=== PATIENT | female | born 1965 | race Caucasian/White ===

== ENCOUNTER → 2019-02-22 11:30 | Outpatient (CLI) | payer OTHER, SELFPAY ==
--- NOTE | 2019-02-22 11:33 | DI.US.S_ITS ---
PROCEDURE: US PELVIC COMPLETE INDICATIONS: POSSIBLE RETAINED TAMPON; UNABLE TO FIND ON PELVIC EXAM TECHNIQUE: Real-time scanning was performed of the pelvic organs, with image documentation. Additional endovaginal scanning was necessary due to incomplete visualization of the adnexal and endometrial structures by transabdominal scanning. COMPARISON: None. FINDINGS: Transabdominal scanning: Limited scanning through the kidneys shows no hydronephrosis. No pathologic free abdominal or pelvic fluid. Endovaginal scanning: Uterus: Uterus is normal in size at 9.3 x 4.3 x 5.2 cm. The endometrium measures 5.5 mm in combined thickness. No endometrial mass or fluid is seen. No tampon is visualized within the endometrium or endocervical canal. Ovaries: Bilateral ovaries are not well seen on this study. No gross adnexal mass or fluid is noted. Left uterine vessels appears dilated. IMPRESSION: 1. No endometrial mass or fluid. No tampon is seen on this study. 2. Bilateral ovaries are not well visualized. No gross adnexal mass. Mildly prominent left uterine vessels, suggest clinical correlation for possible pelvic congestion syndrome. Dictated by: Frank Gan M.D. on 02/22/2019 at 13:22 Approved by: Frank Gan M.D. on 02/22/2019 at 13:24
== END ==
PROVIDERS: PCP Family Medicine; Visit Provider Physician Assistant
DX: T19.2XXA Foreign body in vulva and vagina, initial encounter (principal)
CPT/HCPCS: 76830; 76856

== ENCOUNTER → 2019-02-26 15:55 | Outpatient (CLI) | payer OTHER, SELFPAY ==
--- NOTE | 2019-02-26 15:57 | DI.MG.S_ITS ---
BILATERAL DIGITAL SCREENING MAMMOGRAM 3D/2D WITH CAD: 02/26/2019 CLINICAL: Routine screening. Family history of breast cancer. Comparison is made to exam [facility]. The tissue of both breasts is heterogeneously dense. This may lower the sensitivity of mammography. Current study was also evaluated with a Computer Aided Detection (CAD) system. No significant masses, calcifications, or other findings are seen in either breast. There has been no significant interval change. IMPRESSION: NEGATIVE There is no mammographic evidence of malignancy. A 1 year screening mammogram is recommended. This exam was interpreted at Station ID: [id number]. NOTE: For mammograms, a report in lay terms will be sent to the patient. Approximately 15% of breast malignancies will not be visualized mammographically. In the management of a palpable breast mass, a negative mammogram must not discourage biopsy of a clinically suspicious lesion. Electronically Signed By: Joe cohen/nikolay:02/26/2019 19:24:17 letter sent: Normal Exam ACR BI-RADS Category 1: Negative [id number]
== END ==
PROVIDERS: PCP Family Medicine; Visit Provider Obstetrics & Gynecology
DX: Z12.31 Encounter for screening mammogram for malignant neoplasm of breast (principal); Z80.3 Family history of malignant neoplasm of breast
CPT/HCPCS: 77063; 77067

== ENCOUNTER → 2019-05-02 12:31 | Outpatient (CLI) | payer OTHER, SELFPAY ==
--- NOTE | 2019-05-02 | DI.US.S_ITS ---
PROCEDURE: US ABDOMEN COMPLETE INDICATIONS: EPIGASTRIC PAIN TECHNIQUE: Real-time scanning was performed of the abdominal and retroperitoneal organs, with image documentation. COMPARISON: None. FINDINGS: Liver: Liver is normal in size and homogeneous in echotexture. Gallbladder: Large gallstone present the gallbladder wall is thickened measuring up to 6.8 mm. Biliary ducts: Intrahepatic bile ducts are non-dilated. Extrahepatic bile duct caliber measures 6.5 mm. Normal is 6-7 mm or less in diameter, or 10 mm or less post-cholecystectomy. Pancreas: Visualized portions of the pancreas are sonographically normal. Spleen: Spleen is normal in size and homogeneous in echotexture. Kidneys: Kidneys are normal in size and echotexture. Right kidney measures 10.6 cm long; left kidney measures 10.8 cm long. No hydronephrosis or nephrolithiasis. No solid masses. Aorta: Visualized aorta is normal in caliber at less than 3 cm. Iliacs: Proximal common iliac arteries are normal in caliber at less than 2.5 cm. IVC: Intrahepatic inferior vena cava is patent. Miscellaneous: No free abdominal fluid. IMPRESSION: 1. Single large gallstone with thickened gallbladder wall measuring up to 6.8 mm suggesting associated acute cholecystitis. Recommend clinical correlation. Angyok Ang given results at 1654 hrs. 05/02/2019. Dictated by: Oziel HALL Interpreted: Ganesh Blount MD on 05/02/2019 at 16:40 Approved by: Ganesh Blount M.D. on 05/02/2019 at 17:30
== END ==
PROVIDERS: Family Provider Nurse Practitioner Family; PCP Family Medicine; Visit Provider Family Medicine
DX: R10.13 Epigastric pain (principal); K80.20 Calculus of gallbladder without cholecystitis without obstruction
CPT/HCPCS: 76700

== ENCOUNTER 2019-05-10 09:46 | Day surgery (SDC) | payer OTHER, SELFPAY ==
[2019-05-08 11:46] VITALS: BMI 30.2
[2019-05-10] VITALS (10 sets, daily range): BP systolic 98–116; BP diastolic 52–75; PULSE 54–73; RESP 10–16; TEMP 36.1–37.6; O2SAT 92–99; BMI 30.9
--- NOTE | 2019-05-10 | PATH_ITS ---
[facility] Accession Number: [id number] . 01 Material submitted: . gallbladder - GALLBLADDER . 02 Diagnosis: Gallbladder, Cholecystectomy: Cholelithiasis with mild chronic cholecystitis. No evidence of neoplasm. MRV 05/13/2019 1317 Local . 02 Electronically signed: . Lincoln Roger MD, PhD, Pathologist NPI- [id number] . 01 Gross description: . Received in formalin, labeled gallbladder, is an intact gallbladder (length-9.5 cm, diameter-2.5 cm) with pisano-green smooth shiny serosa and a patent cystic duct. No lymph nodes are identified. The lumen contains dark green viscous bile and one esteves-yellow gritty hard calculus (2.2 x 1.5 x 1.3 cm) with a clear colorless crystalline cut surface. The mucosa is dark green smooth and flat. The wall is up to 0.1 cm thick. No nodules, masses or lesions are identified. Section code: (A1) cystic duct resection margin and two serial sections from the body; (A2) two longitudinal sections from the fundus. ([id number]) /MRV 05/11/20192034 Local . 02 Pathologist provided ICD-10: K80.60 . 02 CPT . 894601 Performed at: 01 [facility] [address], [place], [place] [id number] MD Zeferino Gastelum MD Phone: [phone] Performed at: 02 [facility] [address] [place], [place] [id number] MD Lizzy Estrada MD Phone: [phone]
[2019-05-10 10:23] LABS: Add Manual Diff / Slide Review NO; Basophils Absolute Auto 100 /uL (0-100); Basophils Percent Auto 1.5 % (0-2); Eosinophils Absolute Auto 100 /uL (0-450); Eosinophils Percent Auto 2.2 % (2-4); Hematocrit 43.8 % (36-46); Hemoglobin 14.7 g/dL (12.0-16.0); Lymphocytes Absolute Auto 2000 /uL (1100-4500); Lymphocytes Percent Auto 35.4 % (25-40); Mean Corpuscular HGB Conc 33.7 % (30-36); Mean Corpuscular Hemoglobin 30.1 PG (26-34); Mean Corpuscular Volume 89.6 fL (80-100); Monocytes Absolute Auto 400 /uL (0-900); Monocytes Percent Auto 7.2 % (3-14); Neutrophils Absolute Auto 3100 /uL (1500-7000); Neutrophils Percent Auto 53.7 % (50-75); Platelet Count 308 X10^3/uL (150-400); Red Blood Cell Count 4.89 X10^6/uL (4.0-5.2); Red Cell Distribution Width 14.4 % (11.6-14.8); White Blood Cell Count 5.8 X10^3/uL (4.5-11.0)
[2019-05-10] MEDS: LACTATED RINGERS 1,000 ML 42 ML IV ×2 (10:34→13:00)
[2019-05-10 10:58] LABS: Alanine Aminotransferase 13 IU/L (9-52); Albumin 4.4 g/dL (3.5-5.0); Albumin Globulin Ratio 1.4 (1.0-2.8); Alkaline Phosphatase 41 U/L (38-126); Aspartate Aminotransferase 25 IU/L (14-36); BUN Creatinine Ratio 22.5 (6-22); Bilirubin Total 0.8 mg/dL (0.2-1.3); Blood Urea Nitrogen 18 mg/dL (7-17); Calcium 9.2 mg/dL (8.4-10.2); Carbon Dioxide 24 mmol/L (22-32); Chloride 105 mmol/L (98-107); Estimated Glomerular Filt Rate > 60.0 mL/min (>60); Globulin 3.1 g/dL (1.7-4.1); Glucose 87 mg/dL (70-100); HEMOLYSIS 50 (0-50); Potassium 4.3 mmol/L (3.4-5.1); Sodium 139 mmol/L (137-145); Total Protein 7.5 g/dL (6.3-8.2)
--- NOTE | 2019-05-10 10:59 | SUR.PREOP ---
Dr. Gusman notified patient c/o lt chest tightness and anxiety. Pt c/o pain at the IV site, site wnl. Warm blanket applied with some improvement in discomfort.
--- NOTE | 2019-05-10 11:07 | PM.PREOP ---
Pre-operative Note Interval Note History & Physical reviewed/Exam performed by Physician: Yes Changes to H&P: Yes H&P completed within 30 days and has changed as indicated here:: CBC and CMP are normal
[2019-05-10] MEDS: AMPICILLIN/SULBACTAM 3 GM 3 GM in SODIUM CHLORIDE 0.9% 100 ML IV (11:10)
--- NOTE | 2019-05-10 11:42 | SUR.OPER ---
Supine on padded OR bed, head on pillow, safety belt at thigh, ARMS ON ARMBOARDS Legs uncrossed. Padded footboard in place. Tape over blanket to secure lower legs.
--- NOTE | 2019-05-10 11:52 | SUR.OPER ---
Supine on padded OR bed, head on pillow, arms secured on padded arm boards at <90 degrees abduction, legs uncrossed, safety belt at thigh, tape over blanket over lower legs.
[2019-05-10] MEDS: BUPIVACAINE 0.25% W/ EPI 30 ML VIAL INJ (13:31)
[2019-05-10] MEDS: ONDANSETRON 4 MG/2 ML INJ IV (14:20)
--- NOTE | 2019-05-10 14:28 | PM.OP.1 ---
Operative Date/Time/Diagnoses Date of procedure: 05/10/19 Time of procedure: 14:28 Pre-op diagnosis: Symptomatic cholelithiasis, chronic cholecystitis Post-op diagnosis: same Procedure & Clinicians Procedure: Laparoscopic cholecystectomy Same procedure as scheduled: Yes Indications: Acute on chronic cholecystitis, symptomatic cholelithiasis Surgeon: Danielle Siegel Click Yes if Unassisted: Yes Anesthesia Type: General Operative Notes Findings: Thickened gall bladder with dense scar tissue in gall bladder hilum Specimen(s): other (gall bladder) Estimated Blood Loss (mL): 50 Procedure in detail: The patient was brought into the operating room and placed supine on the OR table. Sequential compression devices were placed on both legs and turned on. Appropriate perioperative antibiotics were given prior to the start of surgery. General anesthesia was induced the patient was intubated. The abdomen was prepped and draped in sterile fashion. Surgical time-out was conducted. Local anesthetic was injected under the skin just superior to the umbilicus and a 5 mm vertical incision was made at this site. The umbilical stalk was grasped with a Irving and elevated. A Veress needle was passed through the fascia into proper position. The position was tested with a saline drop test which was appropriate for intra-abdominal Veress needle placement. The abdomen was then insufflated in the usual fashion. Once insufflated to 15 mm Hg the Veress needle was removed and a 5 mm optical trocar was placed under direct vision using a 5 mm 30 degree scope. Once the camera was inside the abdomen I took a look around. There was no injury from port placement. Two additional ports were placed in a similar fashion in the right upper quadrant and a 10 mm port was placed in the epigastrium. Through the 2 lateral ports the gallbladder was grasped and elevated and the infundibulum was retracted laterally to the patient's right. This exposed the gallbladder hilum and allowed for dissection of the cystic duct and cystic artery. There is quite a bit of dense scar tissue throughout the gallbladder hilum. This required tedious careful dissection to avoid injury to the bile ducts. Once the cystic duct and artery were completely dissected out and I was able to see liver behind and between both structures without any other structures in the way, giving us the critical view of safety. At this point I doubly clipped both structures on the patient's side and put a single clip on the gallbladder side of both the cystic duct and artery. Both structures were then divided with laparoscopic [place]. Following this the gallbladder was gradually dissected free from the liver. There was quite a bit of hypervascularity of the scar tissue between the gallbladder and the liver. Several small vessels had to be controlled with cautery. Once the gallbladder was entirely freed, it was placed inside an Endo-Catch bag and removed through the epigastric port site. I did have to enlarge the epigastric site in order to get the gallbladder out. Once it was out and passed off to the back table I then took another look inside the abdomen. I suctioned clean any remaining blood or fluid on the lateral side of the liver and in the subhepatic space. I also suctioned some serosanguineous fluid from the pelvis. There was no active bleeding or leaking of bile from the gallbladder fossa or from the clipped stumps of the cystic duct and artery. At this point the insufflation was removed from the abdomen and the epigastric port site was closed with 0 Vicryl suture in the fascia, 3 O Vicryl in the subcutaneous layers, and 4 Monocryl in the skin. The remaining port sites were closed with 4 Monocryl in the skin. Each port site was sealed with Dermabond. Local anesthetic was given at each of the port sites and in the fascia. This concluded the procedure. At this point the needle sponge and instrument counts were correct. The gallbladder was passed off the table for pathology. Patient was awakened from anesthesia and extubated. She was transferred to the postanesthesia care unit in stable condition. Complications: none Post-operative Condition: stable Disposition: PACU
[2019-05-10] MEDS: OXYCODONE/ACETAMINOPHEN 5/325 TABLET 1 TAB PO (14:54)
--- NOTE | 2019-05-10 15:34 | SUR.PHASEII ---
encouraged cough and deep breathing exercises, incentive spirometer use encouraged, breath sounds are clear but decreased in bases, left greater than right. pt tolerating sips of water, abdomen is soft and non distended, dressings dry and intact. pt denies pain but states she is sore, denies need for additional pain medicine at this time.
[2019-05-10] MEDS: METOCLOPRAMIDE 10 MG/2 ML INJ IV (16:54)
--- NOTE | 2019-05-10 16:56 | SUR.PHASEII ---
Pt reported abd pain 2-3/10. Dizziness improved. Pt sat up in anticipation of discharge, c/o feeling hot and nauseated. Medicated with Reglan.
--- NOTE | 2019-05-10 17:41 | SUR.PHASEII ---
1720 Pt reported nausea resolved. Sat on the edge of the bed independently. VS stable. Pt reported dizziness with movement. Pt declined to change into her own clothing, discharged in hospital gown. Pt transferred to the wheelchair independently/SBA. Reported mild nausea. Discussed option to stay overnight multiple times during phase II. Pt requested to discharge. IV discontinued.
== END 2019-05-10 17:29 | disposition home or self-care (01) ==
PROVIDERS: PCP Family Medicine; Visit Provider Surgery
PROC: 0FT44ZZ Resection of Gallbladder, Percutaneous Endoscopic Approach (ICD-10-PCS; CPT 47562; principal; 2019-05-10 10:45)
DX: K80.10 Calculus of gallbladder with chronic cholecystitis without obstruction (principal)
CPT/HCPCS: 47562; 80053; 85025; J0295; J1100; J1170; J1885; J2250; J2405; J2704; J2765; J3010

== ENCOUNTER → 2020-07-10 11:48 | Outpatient (CLI) | payer OTHER, SELFPAY ==
--- NOTE | 2020-07-10 11:51 | DI.RAD.S_ITS ---
PROCEDURE: XR CHEST 2V INDICATIONS: chest pain TECHNIQUE: 2 views of the chest were acquired. COMPARISON: None. FINDINGS: Surgical changes and devices: None. Lungs and pleura: Lungs are clear. No pleural effusions or pneumothorax. Mediastinum: Mediastinal contours are normal. Heart size is normal. Bones and chest wall: No suspicious bony abnormalities. Soft tissues appear unremarkable. IMPRESSION: No acute disease. Dictated by: Ganesh Blount M.D. on 07/10/2020 at 13:43 Approved by: Ganesh Blount M.D. on 07/10/2020 at 13:45
== END ==
PROVIDERS: PCP Family Medicine; Referring Provider Family Medicine; Visit Provider Family Medicine
DX: R07.9 Chest pain, unspecified (principal)
CPT/HCPCS: 71046

== ENCOUNTER → 2020-10-14 11:30 | Outpatient (CLI) | payer OTHER, SELFPAY ==
[2020-10-14 13:17] LABS: COVID19 -Nasal RAPID Negative (Negative)
== END ==
PROVIDERS: PCP Family Medicine; Visit Provider Physician Assistant
DX: Z01.812 Encounter for preprocedural laboratory examination (principal); Z20.822 Contact with and (suspected) exposure to COVID-19
CPT/HCPCS: 87635

== ENCOUNTER 2020-10-16 14:14 | Day surgery (SDC) | payer OTHER, SELFPAY ==
--- NOTE | 2020-10-16 08:16 | PM.HP.1 ---
History of Present Illness History of Present Illness Date Patient Seen: 10/16/20 Chief complaint: SDC Narrative: 55 Years Old Female comes in today for consideration of a screening colonoscopy. There have been no lower GI symptoms suggesting disease such as change in bowel habits, bleeding, abdominal pain or anemia. There's been no family history of colon cancer or colon polyps. Overall health issues have been stable, including no major cardiac events for at least 6 weeks. Past Medical History: Epidermoid cyst of skin Acute calculous cholecystitis Perioral dermatitis ANXIETY DISORDER, GENERALIZED Palpitations Past Surgical History: Section x 3 Cholecystectomy Family History: Dad: prolapsing mitral valve. ablation for ? arrythmia Mom: no problems Brother 2 years younger healthy Social History: Marital Status: Children: Lori(03/09/05), Grisel (02/12/07), Tabatha (09/24/09) Occupation: Teacher Household Members: Lori Horan, Grisel, Tabatha Education: Masters Patient History Medical History (Updated 05/23/19 @ 13:49 by Danielle Siegel MD) Cholelithiasis and cholecystitis without obstruction Surgical History (Updated 05/23/19 @ 13:49 by Danielle Siegel MD) Hx of section Status post cholecystectomy Family & Social History Family History Father Stroke Hx of heart disorder Grandmother Diabetes mellitus Cancer Hx of heart disorder Social History: household members spouse Tobacco & Substance use: Smoking Status Never smoker alcohol intake current Meds Home Medications and Allergies Home Medications Medication Instructions Recorded Confirmed Type estradiol 1 vag ring VAGINAL [id number] #1 ea 09/02/20 09/02/20 Rx Allergies Allergy/AdvReac Type Severity Reaction Status Date / Time adhesive Allergy Unknown Blister Verified 09/02/20 15:02 Review of Systems Review of Systems ROS: Yes All systems reviewed with the patient and are negative except as otherwise documented Exam Narrative Exam Narrative: General: Alert and oriented, appearing stated age and in no acute distress. Head: Head normocephalic/atraumatic. Neck: Neck soft and supple, no lymphadenopathy. Lungs: Clear to auscultation bilaterally, no wheezes, rhonchi or rales. Heart: normal rate and regular rhythm, no murmurs, rubs, gallops, or clicks, Abdomen: abdomen soft and non-tender without masses, organomegaly, or abdominal wall hernias, bowel sounds positive. Skin: intact without suspicious lesions or rashes, Psych: alert and cooperative; normal mood and affect; normal attention span and concentration; cognition, remote and recent memory appear to be intact, Assessment & Plan Assessment & Plan narrative: 1. Screening for colon cancer Plan for colonoscopy. The nature and character of the procedure as well as anticipated results were discussed. The possibility of not completing the procedure was also discussed. Possible complications including aspiration pneumonia, bleeding, perforation and reaction to medications either for sedation or preparation and missed lesions were discussed. Questions were answered and proceeding to the colonoscopy was elected. Informed consent signed. I sincerely appreciate the referral allowing me to participate in this patient's care. Please contact me with any questions or concerns.
--- NOTE | 2020-10-16 08:17 | PM.OP.ENDO ---
Operative Date/Time/Diagnoses Date of procedure: 10/16/20 Procedure Notes SCOAP/Timeout: 3:03 p.m. Procedure in detail: ENDOSCOPIST: Julieta Florez MD Sedation RN: Ac Plasencia RN Sedation start time: 3:04 p.m. Sedation end time: 3:25 p.m. PROCEDURE: Colonoscopy INDICATIONS: 1. Screening for colon cancer MEDICATION: Levsin 0.125 mg sublingual, incremental doses of Versed and fentanyl until appropriate level sedation achieved. ASA CLASS: 2 CECAL WITHDRAWAL TIME: 10 minutes COMPLICATIONS: None. EXTENT OF PROCEDURE: Cecum. QUALITY OF PREP: Good with portions of liquid stool. PROCEDURE: Prior to insertion of the colonoscope, a digital rectal examination was accomplished with circumferential palpation of the distal rectal mucosa without significant findings being noted. The high-definition pediatric colonoscope was passed into the rectum in the usual fashion and advanced over to the cecum without difficulty. The ileocecal valve, appendiceal stoma, and medial wall all could be inspected and no abnormalities were seen. ASCENDING COLON: As the colonoscope was withdrawn, care was taken to expose and inspect the haustral folds and no abnormalities were seen. HEPATIC FLEXURE: Normal, no polyps, diverticula or other abnormalities. TRANSVERSE COLON: Normal, no polyps, diverticula or other abnormalities. DESCENDING COLON: Normal, no polyps, diverticula or other abnormalities. SIGMOID COLON: Normal, no polyps, diverticula or other abnormalities. RECTUM: Normal. J maneuver was produced. There was no significant perianal disease. The J maneuver was broken. The remainder of the rectum was inspected and there was no external hemorrhoid disease. The scope was withdrawn. IMPRESSION: 1. Normal colonoscopy PLAN: 1. Repeat colonoscopy in 10 years The possibility of a missed lesion including a malignancy has been discussed with the patient previously. Potential alarm symptoms have been discussed and should be reported immediately.
[2020-10-16 14:39] VITALS: BP 122/72; PULSE 59; RESP 14; TEMP 36.8; O2SAT 100
[2020-10-16 14:46] VITALS: BMI 29.0
[2020-10-16] MEDS: LACTATED RINGERS 1,000 ML 200 ML IV (14:46)
[2020-10-16] MEDS: HYOSCYAMINE 0.125 MG TABLET PO (14:56)
[2020-10-16] MEDS: fentaNYL 250 MCG/5 ML INJ IV (15:13)
[2020-10-16] MEDS: MIDAZOLAM 5 MG/5 ML VIAL IV (15:13)
[2020-10-16 15:30] VITALS: BP 113/57; PULSE 64; RESP 14; TEMP 36.5; O2SAT 95
[2020-10-16 15:35] VITALS: BP 103/59; PULSE 63; RESP 16; O2SAT 96
[2020-10-16 15:40] VITALS: BP 108/60; PULSE 64; RESP 16; TEMP 36.4; O2SAT 96
[2020-10-16 15:47] VITALS: BP 114/64; PULSE 58; RESP 16; O2SAT 97
== END 2020-10-16 16:09 | disposition home or self-care (01) ==
PROVIDERS: PCP Family Medicine; Referring Provider Student in an Organized Health Care Education/Training Program; Visit Provider Student in an Organized Health Care Education/Training Program
PROC: 0DJD8ZZ Inspection of Lower Intestinal Tract, Via Natural or Artificial Opening Endoscopic (ICD-10-PCS; CPT 45378; principal; 2020-10-16 15:15)
DX: Z12.11 Encounter for screening for malignant neoplasm of colon (principal); F41.9 Anxiety disorder, unspecified
CPT/HCPCS: 45378; J2250; J3010

== ENCOUNTER → 2021-03-30 10:57 | Outpatient (CLI) | payer OTHER, SELFPAY ==
--- NOTE | 2021-03-30 | DI.MG.S_ITS ---
BILATERAL DIGITAL SCREENING MAMMOGRAM 3D/2D WITH CAD: 03/30/2021 CLINICAL: Routine screening. Family history of breast cancer. Comparison is made to exams dated: 02/26/2019 mammogram and 07/17/2008 mammogram - [facility]. The tissue of both breasts is heterogeneously dense. This may lower the sensitivity of mammography. Current study was also evaluated with a Computer Aided Detection (CAD) system. No significant masses, calcifications, or other findings are seen in either breast. There has been no significant interval change. IMPRESSION: NEGATIVE There is no mammographic evidence of malignancy. A 1 year screening mammogram is recommended. This exam was interpreted at Station ID: [id number]. NOTE: For mammograms, a report in lay terms will be sent to the patient. Approximately 15% of breast malignancies will not be visualized mammographically. In the management of a palpable breast mass, a negative mammogram must not discourage biopsy of a clinically suspicious lesion. Electronically Signed By: Noah torres/nikolay:03/30/2021 11:26:24 copy to: Christiano Salvador letter sent: Normal Exam ACR BI-RADS Category 1: Negative [id number]
== END ==
PROVIDERS: PCP Family Medicine; Referring Provider Obstetrics & Gynecology; Visit Provider Obstetrics & Gynecology
DX: Z12.31 Encounter for screening mammogram for malignant neoplasm of breast (principal); Z80.3 Family history of malignant neoplasm of breast
CPT/HCPCS: 77063; 77067

== ENCOUNTER → 2022-02-09 10:08 | Outpatient (CLI) | payer OTHER, SELFPAY ==
[2022-02-09 10:46] LABS: Add Manual Diff / Slide Review NO; Basophils Absolute Auto 100 /uL (0-100); Eosinophils Absolute Auto 200 /uL (0-450); Eosinophils Percent Auto 3.5 % (2-4); Hemoglobin 14.1 g/dL (12.0-16.0); Lymphocytes Absolute Auto 2500 /uL (1100-4500); Lymphocytes Percent Auto 44.7 % (25-40); Mean Corpuscular HGB Conc 33.5 % (30-36); Mean Corpuscular Hemoglobin 29.5 PG (26-34); Monocytes Absolute Auto 400 /uL (0-900); Monocytes Percent Auto 6.8 % (3-14); Neutrophils Absolute Auto 2400 /uL (1500-7000); Platelet Count 278 X10^3/uL (150-400); Red Blood Cell Count 4.77 X10^6/uL (4.0-5.2); Red Cell Distribution Width 14.1 % (11.6-14.8); White Blood Cell Count 5.5 X10^3/uL (4.5-11.0)
[2022-02-09 11:43] LABS: TSH w/ Reflex to FT4 2.39 uIU/mL (0.47-4.68)
== END ==
PROVIDERS: PCP Family Medicine; Referring Provider Physician Assistant Medical; Visit Provider Physician Assistant Medical
DX: R53.82 Chronic fatigue, unspecified (principal); R63.5 Abnormal weight gain
CPT/HCPCS: 36415; 84443; 85025

== ENCOUNTER → 2022-06-01 15:48 | Outpatient (CLI) | payer OTHER, SELFPAY ==
--- NOTE | 2022-06-01 15:48 | DI.RAD.S_ITS ---
PROCEDURE: XR CHEST 2V INDICATIONS: Cough TECHNIQUE: 2 views of the chest were acquired. COMPARISON: [facility], CR, XR CHEST 2V, 07/10/2020, 12:05. FINDINGS: Surgical changes and devices: None. Lungs and pleura: Lungs are clear. No pleural effusions or pneumothorax. Mediastinum: Mediastinal contours are normal. Heart size is normal. Bones and chest wall: No suspicious bony abnormalities. Soft tissues appear unremarkable. IMPRESSION: No acute radiographic abnormality. Dictated by: Manny Ni M.D. on 06/01/2022 at 18:12 Approved by: Manny Ni M.D. on 06/01/2022 at 18:13
== END ==
PROVIDERS: PCP Family Medicine; Referring Provider Nurse Practitioner Family; Visit Provider Nurse Practitioner Family
DX: R05.9 Cough, unspecified (principal)
CPT/HCPCS: 71046

== ENCOUNTER → 2024-11-05 14:26 | Outpatient (CLI) | payer OTHER, SELFPAY ==
[2024-11-05 16:02] LABS: Add Manual Diff / Slide Review NO; Basophils Absolute Auto 100 /uL (0-100); Basophils Percent Auto 0.9 % (0-2); Eosinophils Absolute Auto 100 /uL (0-450); Eosinophils Percent Auto 1.6 % (2-4); Hematocrit 43.9 % (36-46); Lymphocytes Absolute Auto 2800 /uL (1100-4500); Lymphocytes Percent Auto 35.8 % (25-40); Mean Corpuscular HGB Conc 34.3 % (30-36); Mean Corpuscular Hemoglobin 30.3 PG (26-34); Mean Corpuscular Volume 88.4 fL (80-100); Monocytes Absolute Auto 400 /uL (0-900); Monocytes Percent Auto 5.2 % (3-14); Neutrophils Absolute Auto 4400 /uL (1500-7000); Neutrophils Percent Auto 56.5 % (50-75); Platelet Count 309 X10^3/uL (150-400); Red Blood Cell Count 4.96 X10^6/uL (4.0-5.2); Red Cell Distribution Width 13.5 % (11.6-14.8); White Blood Cell Count 7.8 X10^3/uL (4.5-11.0)
[2024-11-05 16:25] LABS: Alanine Aminotransferase 18 IU/L (<35); Albumin 4.6 g/dL (3.5-5.0); Albumin Globulin Ratio 1.3 (1.0-2.8); Alkaline Phosphatase 58 U/L (38-126); Aspartate Aminotransferase 26 IU/L (14-36); BUN Creatinine Ratio 20.6 (6-22); Bilirubin Total 0.7 mg/dL (0.2-1.3); Blood Urea Nitrogen 21 mg/dL (7-17); Calcium 9.3 mg/dL (8.4-10.2); Carbon Dioxide 26 mmol/L (22-32); Chloride 102 mmol/L (98-107); Estimated Glomerular Filt Rate > 60 mL/min (>60); Globulin 3.5 g/dL (1.7-4.1); Glucose 75 mg/dL (70-100); HEMOLYSIS < 15 (0-50); Potassium 3.9 mmol/L (3.4-5.1); Sodium 138 mmol/L (137-145); Total Protein 8.1 g/dL (6.3-8.2)
[2024-11-05 16:41] LABS: Free T3, Triiodothyronine Free 3.88 pg/mL (2.77-5.27)
[2024-11-05 16:43] LABS: Follicle Stimulating Hormone 21.1 mIU/mL; Progesterone, Total 5.62 ng/mL
[2024-11-05 16:55] LABS: Thyroid Stimulating Hormone 1.89 uIU/mL (0.47-4.68)
[2024-11-05 16:58] LABS: Estradiol, Total 32.8 pg/mL
[2024-11-08 17:09] LABS: Testosterone, Free 1.8 pg/mL (0.0-4.2)
[2024-11-11 12:15] LABS: Cholesterol,Total 257
[2024-11-11 12:16] LABS: HDL Cholesterol 54; Triglycerides 108
[2024-11-11 12:17] LABS: VLDL Cholesterol Cal 19
[2024-11-11 12:19] LABS: Cholesterol HDL Ratio 4.8
[2024-11-11 12:20] LABS: LDL Cholesterol Cal 184
== END ==
PROVIDERS: PCP Family Medicine; Referring Provider Specialist; Visit Provider Specialist
DX: Z51.81 Encounter for therapeutic drug level monitoring (principal); E78.2 Mixed hyperlipidemia
CPT/HCPCS: 36415; 80053; 80061; 82670; 83001; 84144; 84270; 84402; 84443; 84481; 85025

== ENCOUNTER → 2025-07-21 13:53 | Outpatient (CLI) | payer OTHER, SELFPAY ==
--- NOTE | 2025-07-21 13:55 | DI.US.S_ITS ---
PROCEDURE: US PELVIC COMPLETE INDICATIONS: Postmenopausal bleeding TECHNIQUE: Real-time scanning was performed of the pelvic organs, with image documentation. Additional endovaginal scanning was necessary due to incomplete visualization of the adnexal and endometrial structures by transabdominal scanning. COMPARISON: [facility], , US PELVIC COMPLETE, 02/22/2019, 12:04. FINDINGS: Uterus: Uterus is anteverted and normal in size at 9.1 x 4.2 x 5.7 cm. The myometrium is homogeneous. The endometrium measures 8.6 mm combined thickness. Ovaries: The ovaries are not seen. Other: No pathologic free abdominal or pelvic fluid. IMPRESSION: Endometrium is thickened measuring 8.6 mm. Recommend endometrial sampling. The ovaries are not seen. We strive to produce accurate, complete, and clear reports of imaging services. To assist us in improving patient care, this report was composed using standard report templates and voice recognition software. Therefore, it may contain abnormal punctuation, insertions and/or omissions. Occasional wrong-word or sound-alike substitutions may occur. Though we review the report and make efforts to correct it, we do recommend that the report be read carefully in proper context to recognize any text inaccuracies. Dictated by: Juan R Wilson M.D. on 07/21/2025 at 15:27 Approved by: Juan R Wilson M.D. on 07/21/2025 at 15:31
== END ==
PROVIDERS: PCP Family Medicine; Referring Provider Family Medicine; Visit Provider Specialist
DX: N95.0 Postmenopausal bleeding (principal); R93.89 Abnormal findings on diagnostic imaging of other specified body structures
CPT/HCPCS: 76830; 76856